=== PATIENT | female | born 1975 | race Caucasian/White ===

== ENCOUNTER 2017-03-27 21:06 | Emergency (ER) | payer OTHER ==
[~2017-03-27] VITALS: Ht 170.2 cm; Wt 86.2 kg
[~2017-03-27 21:06] MED LIST: ACYC400T2 PO; CALC500T3 PO; CITA20TA PO; CLOT15CR4 TP; CYCL5TAB PO; FLUC150T3 PO; HYDR-4003 PO; LISI10TA2 PO; MULT-1018 PO; OMEG1CAP5 PO; VITA1TAB94 PO; VITA200C61 PO; [UNRECOGNIZED DRUG - CODE] PO; [UNRECOGNIZED DRUG - OTHER]
[2017-03-27 21:10] VITALS: BP 142/96; PULSE 106; RESP 16; O2SAT 99
--- NOTE | 2017-03-27 22:04 | ED.REPORT ---
HPI-Back Pain 40 and Over Date of Service Mar 27, 2017 ED Provider: Dr. Geovani Singh The patient is a 42 year old female w/ a hx of chronic back pain who presents to the ED c/o severe back pain after lifting a box this morning. She denies numbness, incontinence, and loss of bowel function. Nursing Notes Stated Complaint: BACK/SACRUM Chief Complaint: Back Pain or Injury Nursing Notes Reviewed: Yes Allergies: Coded Allergies: latex (Verified Allergy, Unknown, 02/11/16) Uncoded Allergies: SULFA (Adverse Reaction, Intermediate, 12/04/15) YEAST INFECTION Scheduled Acyclovir (Acyclovir) 400 Mg Tablet 400 MG PO BID Citalopram Hydrobromide (Celexa) 20 Mg Tablet 20 MG PO DAILY Fluconazole (Fluconazole) 150 Mg Tablet 150 MG PO ONCE Lisinopril (Lisinopril) 10 Mg Tablet 10 MG PO DAILY Multivitamin (Multi Vitamin Daily) 1 Each Tablet 1 EACH PO DAILY Scheduled PRN Cyclobenzaprine (Cyclobenzaprine) 5 Mg Tablet 5 MG PO TID PRN PRN Spasm Hydrocodone-Acetaminophen 5-325 mg (Hydrocodone-Acetaminophen 5-325 mg) 1 Each Tablet 1 TABLET PO Q4H PRN PRN For Pain Miscellaneous Medications ([ bernie]) Ascorbic Acid (Ascorbic Acid with Rh) 500 Mg Tablet 500 MG PO Calcium Carbonate (Calcium Carbonate) 500 Mg Tablet 500 MG PO Clotrimazole (Clotrimazole) 15 Gm Cream..g. 15 GM TP [place]-3 Fatty Acids/Fish Oil (Fish Oil 1,000 mg Capsule) 1 Each Capsule 1 EACH PO Vitamin B Complex (B-50 Complex) 1 Each Tablet 1 EACH PO Vitamin E (Dl,Tocopheryl Acet) (Vitamin E) 200 Unit Capsule 200 UNIT PO General Time Seen by MD: 22:03 Chief Complaint Back pain Hx Obtained From: Patient Arrived By: Walk-in Sudden in Onset?: Yes Onset Occurred: 5 - 8 hours ago Symptom Duration: Since onset Location: : Spinal lumbar area Quality: Painful Severity: Current: Moderate Recent Healthcare: No recent doctor visit, No recent hospitalization Similar Sx Previous: Yes Past Medical History Past Medical History chronic back pain Past Surgical History Denies Reports: Cholecystectomy Smoking History Former Smoker Social History Alcohol Use: Denies alcohol use Drug Use: Denies drug use Occupation lives with boyfriend Review of Systems Female: Denies: Hematuria, Incontinence, Urination decreased, Urination increased Musculoskeletal: Reports: Back pain Neurologic: Denies: Bowel dysfunction, Numbness Complete sys rev & neg: except as marked. Physical Exam Initial Vital Signs Vital Signs (First) Date Time Temp Pulse Resp B/P Pulse Ox O2 Delivery O2 Flow Rate FiO2 03/27/17 21:10 37.7 106 16 142/96 99 Room Air Initial VS: Reviewed General/Constitutional: Awake, Alert, Cooperative, Not toxic appearing Respiratory / Chest: Atraumatic, Breath sounds NL, Breath sounds = bilat, No respiratory distress Cardiovascular: Heart rate NL, Regular rhythm, Heart sounds NL Abdomen: Atraumatic, Soft, Non-tender Back: Atraumatic no chord syndrome no signs of cauda equina syndrome Neurologic: Oriented X3, Speech NL, No motor deficits Lower Extremity / Pelvis / MS: Atraumatic, Inspection NL, No deformity, Neurologic intact positive straight leg sign on the right Skin: Atraumatic, Warm, Dry Head / Eyes: Atraumatic, Normocephalic, PERRL, EOMI Upper Extremity / MS: Atraumatic, Inspection NL, No deformity, Neurologic intact Re-Eval/Medical Decision Re-Evaluation/Progress #1: Time of Eval: 22:26 Re-Evaluation/Progress Note: Pt checked. She requests a Toradol injection for pain. No high risk features for accord syndrome, myelopathy, or infection. Emergent imagery not needed. Re-Evaluation/Progress #2: Time of Eval: 23:05 Patient Status: Condition improved, Pain improved Re-Evaluation/Progress Note: Pt rechecked. Her pain is much improved after pain medication. She feels much better. Plan for discharge. Pt understands and agrees with plan. F/U and RTER warnings given. All questions addressed. Counseled Regarding: Diagnosis, Lab results, Need for follow-up, When/why to return to ED Discharge & Departure Impression: Primary Impression: Low back pain Chronicity: chronic Back pain laterality: bilateral Sciatica presence: unspecified whether sciatica present Qualified Code: M54.5 - Low back pain Disposition: Home Discharge Condition All VS Reviewed: Yes Condition: Critical Patient Instructions: Chronic Back Pain (ED), Low Back Strain (ED) Additional Instructions: You should pursue rehabilitation to strengthen your back. I recommend aggressive physical therapy and rehab. This will help prevent you from throwing you back out in the future and injuring it further. Research low back injury rehabilitation online for more information. Surgery should only be used as a last resort. Take 1-2 percocet every 6 hrs for pain. 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 Take naproxen twice daily for the next 2 days and then just as needed. Take the naproxen with food and do not take it more then twice daily. Do not drink alcohol or operate machinery while on pain medication. Return to the Emergency Department for any new or worsening symptoms including numbness, fever, increased back pain, loss of bladder or bowel control. Referrals: Lala Awan MD (PCP) Scribe Attestation Portion of this note were transcribed by Lyn Dickerson. I, Dr. Singh, personally performed the history, physical exam, and medical decision-making: I reviewed and confirmed the accuracy for the information in the transcribed note. Signed by: iliana Broderick, 03/27/17 2300 copies to: Lala Awan MD, Todd P DO Mar 27, 2017 22:04 Lyn Dickerson Mar 27, 2017 22:27
[2017-03-27] MEDS ORDERED: Dexamethasone 10 mg/mL Inj IM ONE (22:30)
[2017-03-27] MEDS ORDERED: oxyCODONE-Acetamin 5-325 mg Tablet PO ONE (22:30)
[2017-03-27] MEDS ORDERED: _oxyCODONE/APAP 5-325 mg Tablet PO PRN (22:40)
[2017-03-27 23:31] VITALS: BP 138/84; PULSE 92; RESP 16; O2SAT 99
== END 2017-03-27 23:33 | disposition home or self-care (01) ==
LOC: SED 21:06
DX: M54.5 Low back pain (principal); X50.0XXA Overexertion from strenuous movement or load, initial encounter; Y93.89 Activity, other specified; Y92.89 Other specified places as the place of occurrence of the external cause; Y99.8 Other external cause status; G89.29 Other chronic pain; Z87.891 Personal history of nicotine dependence; Z88.2 Allergy status to sulfonamides; Z91.040 Latex allergy status
CPT/HCPCS: 96372; 99284; J1100; J1885